=== PATIENT | female | born 1985 | race Caucasian/White ===

== ENCOUNTER 2018-09-28 10:00 | Inpatient (IN) | payer BC ==
[2018-09-23 17:44] VITALS: BMI 19.9
--- NOTE | 2018-09-27 14:45 | HP ---
Admitting History and Physical - Primary Care Physician PCP: Merlin Clark - Admission Chief Complaint: Left breast cancer BRCA 1+ History of Present Illness: 33 year old premenapausal Ashkenazi female BRCA 1 + and was getting close survelance at [facility] and had a mammogram 02/2018 showing left breast calcifications. She was breast feeding at the time and calcifications were not amenable to steretactic core at that time. MRI showed lactational changes. follow up breast MRI 07/2018 showed enhancement at the 3:00 region left breast. MRI core bx left breast showed extensive DCIS and one minute focus of invasion. ER+ AK weakly +. History Source: Patient Limitations to Obtaining History: No Limitations - Past Medical History ...LMP: 09/16/18 - Past Surgical History Additional Past Surgical History: ankle surgery 1999 - Smoking History Smoking history: Never smoked Have you smoked in the past 12 months: No - Alcohol/Substance Use Hx Alcohol Use: Yes (social) Home Medications - Allergies Allergies/Adverse Reactions: Allergies Allergy/AdvReac Type Severity Reaction Status Date / Time No Known Allergies Allergy Verified 09/23/18 17:53 - Home Medications Home Medications: Ambulatory Orders Mv-Min/Iron/Folic/Calcium/Vitk [Women's Multivitamin Tablet] 1 each PO DAILY 12/10 Family Disease History - Family Disease History Family Disease History: CA: Grandparent (mat GM breast ca 40's) Other Family History: mat aunt breast ca 40's. mat [place] ovarian cancer breast ca 80's. patients mother and father and brother tested positive. Physical Examination Constitutional: Yes: Well Nourished ( small a cup breast no skin changes or nipple dc post bx changes left 3:00 region no masses or adenopathy) Problem List - Problems (1) Breast cancer, left breast Code(s): C50.912 - MALIGNANT NEOPLASM OF UNSPECIFIED SITE OF LEFT FEMALE BREAST Qualifiers: Breast location: overlapping sites of breast Estrogen receptor status: positive Patient sex: female Qualified Code(s): C50.812 - Malignant neoplasm of overlapping sites of left female breast; Z17.0 - Estrogen receptor positive status [ER+] Assessment/Plan Bilateral total mastectomies left sentenel node biopsy possible axillary node dissection lymphoscintogram reconstruction
[2018-09-30] MEDS ORDERED: GENTAMICIN SO4 80 MG/2 ML VIAL ONE (11:49)
[2018-09-30] MEDS ORDERED: ceFAZolin SODIUM 1 GM VIAL ONE ×2 (11:50→13:06)
[2018-09-30] MEDS ORDERED: ISOSULFAN BLUE 10 MG/ML VIAL SQ ONE (11:59)
[2018-09-30] MEDS ORDERED: BUPIVACAINE HCL/PF 2.5 MG/ML - 30 ML VIAL IJ ONE (12:08)
[2018-09-30] MEDS ORDERED: MIDAZOLAM HCL 2 MG/2 ML SINGLE DOSE VIAL ONE (12:08)
[2018-09-30] MEDS ORDERED: BUPIVACAINE LIPOSOME/PF (EXPAREL) 266 MG/20 ML VIAL ONE (12:08)
[2018-09-30] MEDS ORDERED: ONDANSETRON 4 MG/2 ML VIAL IVPUSH PRN ×2 (13:50→15:29)
[2018-09-30] MEDS ORDERED: oxyCODONE HCL 5 MG TABLET PO PRN (13:55)
[2018-09-30] MEDS ORDERED: LACTATED RINGERS SOLUTION 1,000 ML IV SCH (14:00)
[2018-09-30] MEDS ORDERED: ROCURONIUM BROMIDE 50 MG/5 ML VIAL ONE (14:33)
[2018-09-30] MEDS ORDERED: ACETAMINOPHEN 325 MG TABLET (FP) PO PRN (15:29)
[2018-09-30] MEDS ORDERED: DEXTROSE 5%-0.45% SALINE 1,000 ML IV SCH (15:30)
[2018-09-30] MEDS ORDERED: NEOSTIGMINE METHYLSULFATE 0.5 MG/ML - 10 ML MDV ONE (16:14)
[2018-09-30] MEDS ORDERED: GLYCOPYRROLATE 0.2 MG/1 ML VIAL ONE (16:14)
[2018-09-30] MEDS ORDERED: DEXAMETHASONE SOD PHOSPHATE 4 MG/1 ML VIAL ONE (16:24)
[2018-09-30] MEDS ORDERED: ONDANSETRON 4 MG/2 ML VIAL ONE (16:24)
--- NOTE | 2018-09-30 16:46 | SURG ---
Surgery Conveyor Belt Operator Note Conveyor Belt Operator: Atul Decker PA-C Date of Service: 09/30/18 Diagnosis: Left breast cancer Procedure: Bilateral breast reconstruction with implants and alloderm after mastectomy I was present for the entirety of the operative procedure. For further detail, please refer to operative report.
[2018-09-30] MEDS ORDERED: PROMETHAZINE HCL 25 MG/1 ML VIAL ONE (17:13)
[2018-09-30] MEDS ORDERED: PROMETHAZINE HCL 25 MG/1 ML VIAL IVPUSH ONE ×3 (17:15→17:57)
--- NOTE | 2018-09-30 20:04 | OP ---
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 PROCEDURE: Bilateral total nipple sparing mastectomies from inframammary approach with left axillary sentinel lymph node biopsy, indirect implant reconstruction with AlloDerm. ANESTHESIA: General endotracheal anesthesia. PRIMARY SURGEON: Merlin Clark M.D. TRAILER TRUCK DRIVER: Kristina Araiza Primary surgeon for the bilateral direct implant reconstruction is Merlin Salcido M.D. with his investigative assistant Kristina Woodward COMPLICATIONS: There were no complications. DESCRIPTION OF PROCEDURE: Briefly, the patient is a 33-year-old G3, P2, premenopausal white female of Ashkenazi Methodist descent. She has a strong family history with her paternal grandmother who had breast cancer in her 40s as well as maternal aunt with breast cancer in her 40s, and a maternal great aunt who had breast and ovarian cancer in her 80s. Her brother tested BRCA1 positive and then her mother and father turned out to be BRCA1 positive, and she has a maternal uncle and 2 maternal cousins who are BRCA1 positive. The patient tested BRCA1 positive as well and was getting close surveillance at [facility]. She was then found to have some calcifications in the left breast. An MRI showed enhancement in the left breast 3 o'clock region. MRI guided core biopsy in August of 2018 showed extensive DCIS which was ER/AL positive. She was seen in consultation and was told of the benefits of bilateral mastectomy given her genetic predisposition. We had all the films reviewed and saw the cancer was far enough away from the nipple to offer a nipple sparing technique. She understood all risks, complications of the procedure including a risk of skin flap necrosis, skin flap and nipple loss as well as hematoma and infection. She was seen by a plastic surgeon and understood our direct implant reconstruction technique. She understood the need for sentinel lymph node biopsy on the left side. She was brought in for the procedure on September 30, 2018. She first underwent at [facility] and was brought to the [facility] area. In the holding area, site verification was made and informed consent was obtained. She underwent a bilateral pectoral nerve block for postoperative pain control. She was brought into the operating room and laid on the OR table in the supine position. Venodynes were placed on the lower extremities. She received 2 g of Ancef prior to incision. She underwent general anesthesia and both breasts were thoroughly prepped and draped in the usual fashion. There was no blue dye injected since we were doing a nipple sparing technique to prevent nipple necrosis. Once the patient was properly anesthetized, the left axillary sentinel lymph node biopsy was first performed. An incision was made just below the hair bearing area of the left axilla, and dissection was undertaken using the Neoprobe to direct the dissection. Two sentinel nodes were easily found in the level 1 region of the lower left axilla. The first one had a 10-second gamma count of 36,396, and the second sentinel lymph node had a 10-second gamma count of 7615. There was a third nonsentinel node removed. Frozen section on the two sentinel nodes came back negative, so no further nodes were removed. Background count after removal of these 3 nodes was 645. At this point, the left mastectomy was performed through an 8-cm inframammary incision which was marked out on the inframammary fold. The skin edges were everted, and the breast was retracted inferiorly using Danny clamp. The skin flap was raised using the PEEK radiofrequency device superiorly to the level of the clavicle, medially to the level of the sternum, laterally to the level of the latissimus, and inferiorly to the level of the inframammary fold. The breast was taken out off pectoralis major muscle using electrocautery from inferomedial to superolateral, completely removed intact. It was oriented with a long lateral, short superior suture, and weighed to allow for appropriate cosmetic result. Skin flaps were inspected to remove all visible breast tissue. A retroareolar biopsy was taken underneath the left nipple areolar complex and sent for frozen section, came back negative, so the nipple was kept. Hemostasis was achieved and the wound was copiously irrigated with warm, sterile saline. At this point instruments, gloves were changed, and the right breast was approached. Again, an inframammary incision was made about 8 cm in length on the right breast inframammary fold. The skin edges were everted, and the breast was retracted inferiorly using Crenshaw clamp. The skin flap was raised superiorly to the level of the clavicle, medially to the level of the sternum, laterally to the level of the latissimus, and inferiorly to the level of the inframammary fold. The breast was taken out off pectoralis major muscle from inferomedial to superolateral, completely removed intact. It was oriented with a long lateral, short superior suture, and weighed to allow for appropriate cosmetic result. Skin flap was inspected and trimmed to remove all visible breast tissue. A retroareolar biopsy was taken underneath the right nipple areolar complex and sent for frozen section, came back negative, so the right nipple was spared. The wound was copiously irrigated with warm, sterile saline and hemostasis was achieved. At this point Dr. Salcido became the primary surgeon who performed the bilateral direct implant reconstruction in the subpectoral location using AlloDerm. Two Mat drains will be placed around each implant. All wounds will be closed by plastic surgery using interrupted 3-0 deep dermal PDS suture and a running 4-0 subcuticular PDS. Mastisol, Steri-Strips will be applied over the wounds. We did use the SPY skin perfusion device at the end of the mastectomy and after the implant reconstruction, and she had excellent skin perfusion bilaterally. The patient will be extubated at the end of the case and brought to the post anesthesia care unit. She will be recovered and admitted postoperatively for pain and wound management. All sponge and needle counts are correct at this point in the case, and estimated blood loss was about 100 mL. She was hemodynamically stable. Jayden [id number]
[2018-09-30] MEDS: CEFAZOLIN 1 GM/D5W 1 GM/50 ML BAG IVPB SCH (21:32)
[2018-09-30] MEDS: oxyCODONE HCL 5 MG TABLET PO PRN (21:32)
[2018-09-30] MEDS: ACETAMINOPHEN 325 MG TABLET (FP) PO SCH (21:32)
[2018-09-30] MEDS ORDERED: ZOLPIDEM TARTRATE 5 MG TABLET PO PRN (22:00)
[2018-09-30] MEDS: traMADol HCL 50 MG TABLET PO SCH (23:00)
[2018-10-01] MEDS: diazePAM 2 MG TABLET PO SCH ×4 (01:39→22:12)
[2018-10-01] MEDS: ACETAMINOPHEN 325 MG TABLET (FP) PO SCH ×4 (03:00→21:13)
[2018-10-01] MEDS: CEFAZOLIN 1 GM/D5W 1 GM/50 ML BAG IVPB SCH ×4 (03:00→21:12)
[2018-10-01] MEDS: traMADol HCL 50 MG TABLET PO SCH ×3 (06:45→22:12)
[2018-10-01 08:15] LABS: HEMATOCRIT 29.7 % (32.4-45.2); HEMOGLOBIN 9.9 GM/dl (10.7-15.3); MCH 28.4 pg (25.7-33.7); MCHC 33.3 g/dl (32.0-36.0); MEAN CELL VOLUME 85.3 fl (80-96); MEAN PLT VOLUME 9.8 fl (7.5-11.1); PLATELET COUNT 197 K/MM3 (134-434); RBC 3.49 M/mm3 (3.60-5.2); RDW 13.6 % (11.6-15.6); WHITE BLOOD COUNT 13.2 K/mm3 (4.0-10.8)
--- NOTE | 2018-10-01 10:03 | PN ---
Progress Note, Physician Chief Complaint: S/P bilateral mastectomy, left sentinel node bx, lymphoscintogram POD# 1 History of Present Illness: Patient was seen at the bedside and reports a small amount of pain with tightness in her chest otherwise without any other complaint. - Current Medication List Current Medications: Active Medications Acetaminophen (Tylenol -) 650 mg PO Q6H [facility] Last Admin: 10/01/18 09:27 Dose: 650 mg Acetaminophen (Tylenol -) 650 mg PO Q4H PRN PRN Reason: FEVER Last Admin: 10/01/18 01:38 Dose: 650 mg Diazepam (Valium -) 2 mg PO Q8H EVELIN Last Admin: 10/01/18 06:46 Dose: 2 mg Cefazolin Sodium (Ancef 1 Gm Premixed Ivpb -) 1 gm in 50 mls @ 100 mls/hr IVPB Q6H-IV EVELIN Stop: 10/07/18 20:59 Last Admin: 10/01/18 08:50 Dose: 100 mls/hr Dextrose/Sodium Chloride (D5-1/2ns -) 1,000 mls @ 100 mls/hr IV ASDIR EVELIN Ondansetron HCl (Zofran Injection) 4 mg IVPUSH Q6H PRN PRN Reason: NAUSEA AND/OR VOMITING Oxycodone HCl (Roxicodone -) 5 mg PO Q4H PRN PRN Reason: PAIN LEVEL 1-5 Last Admin: 09/30/18 21:32 Dose: 5 mg Oxycodone HCl (Roxicodone -) 10 mg PO Q4H PRN PRN Reason: PAIN LEVEL 7 - 10 Tramadol HCl (Ultram -) 50 mg PO Q8H [facility] Last Admin: 10/01/18 06:45 Dose: 50 mg Zolpidem Tartrate (Ambien -) 5 mg PO HS PRN PRN Reason: Insomnia - Objective Vital Signs: Vital Signs Temperature 99.5 F 10/01/18 06:37 Pulse Rate 71 10/01/18 06:37 Respiratory Rate 18 10/01/18 06:37 Blood Pressure 115/45 L 10/01/18 06:37 O2 Sat by Pulse Oximetry (%) 100 10/01/18 06:37 Constitutional: Yes: Well Nourished, Calm Breast(s): Yes: Other (Nipple areola complexes are pink with very small area of ecchymosis. The steristrips are intact without discharge or erythema noted. IVÁN bulb on the left x 1 was replaced sec to inability to hold suction. Otherwise, serosanginous discharge noted bilaterally.) Labs: CBC, BMP 10/01/18 07:46 Problem List - Problems (1) Breast cancer, left breast Code(s): C50.912 - MALIGNANT NEOPLASM OF UNSPECIFIED SITE OF LEFT FEMALE BREAST Qualifiers: Breast location: overlapping sites of breast Estrogen receptor status: positive Patient sex: female Qualified Code(s): C50.812 - Malignant neoplasm of overlapping sites of left female breast; Z17.0 - Estrogen receptor positive status [ER+] Assessment/Plan Plan: OOB with assistance IS 10 xs hourly Continue IV axbx and pain management as per anesthesia Plan for discharge in am
--- NOTE | 2018-10-01 13:42 | OP ---
DATE OF OPERATION: 09/30/2018 SURGEON: Ilya Salcido MD REQUISITION APPROVER SURGEON: Atul Decker PA-C PREOPERATIVE DIAGNOSES: 1. Bilateral acquired chest wall deformity status post bilateral mastectomy (611.89). 2. Personal history of genetic carcinoma. POSTOPERATIVE DIAGNOSES: 1. Bilateral acquired chest wall deformity status post bilateral mastectomy (611.89). 2. Personal history of genetic carcinoma. PROCEDURE: 1. Right immediate breast reconstruction utilizing immediate insertion of silicone breast implant and AlloDerm reconstruction. 2. Left immediate breast reconstruction utilizing immediate insertion of silicone breast implant and AlloDerm reconstruction. 3. Intravenous injection of indocyanine green dye and intraoperative diagnostic evaluation of noncoronary intraoperative fluorescein vascular angiography x 2. ANESTHESIA: General. OPERATIVE PROCEDURE IN DETAIL: The patient was taken to the operating room. After induction of general anesthesia in the supine position, both arms were extended and padded. Venodyne boots were placed. The entire chest wall was painted with ChloraPrep solution over its entire extent, and sterile drapes were placed in the usual fashion. The markings, which had been made in the standing position preoperatively, were re-outlined with the patient's knowledge. Timeout procedure was performed. Attention was turned by Dr. Clark to the mastectomies. Bilateral inframammary incisions were made and Dr. Clark performed mastectomies. This will be dictated under separate cover. Upon completion of the mastectomies, the wounds were copiously irrigated and attention was turned to the right breast. A subpectoral dissection was begun on the right breast, superiorly from the 2nd rib, medially to the sternal fibers, and down to the inframammary fold, elevating the pectoralis major muscle from its insertion. At this point, an 8.0 x 16.0 sheet of AlloDerm contour medium perforated thickness was brought into the field and sutured superiorly along the pectoralis major muscle after rehydration. This was carried along the lateral mammary fold and down the side of the breast reconstruction. At this point, a [employer] SoftTouch breast implant style SSM, 360-mL volume, was chosen. The left breast tissue removed was 167 g and the right breast approximately 162 g. This implant was placed and then sutured with 3-0 Vicryl suture continued along the inframammary fold, completely covering the implant itself. The exact same procedure was carried out symmetrically on the opposite breast, also placing a [facility] [employer] SoftTouch breast implant style SSM, 360-mL volume, in the same subpectoral pocket. Good symmetry was seen in the sitting position. After the implants were in place, the patient was injected with 10 mL of Isocyanide green dye and the Spy imaging system was brought into the field. The skin flowed to the right and left breasts and the nipple-areolar complex, and the entire skin flaps were evaluated and seen to be viable with good blood flow. Two 15 Mat drains were brought out through separate stab wounds laterally. The Smart Infuser pump catheter was inserted medially and into the subpectoral position. Both wounds were closed symmetrically using 3-0 PDS suture on the deep tissue, 3-0 in a deep dermal fashion, and 4-0 in a subcuticular fashion. Both wounds were dressed sterilely with Mastisol and Steri-Strips with a surgical bra and a compression strap. The patient tolerated the procedure well. She was awakened, extubated and transferred to the recovery room in satisfactory condition. The communications assistant was present during the entire portion of the operation and closure. ILYA SALCIDO M.D. [id number]
[2018-10-01] MEDS: oxyCODONE HCL 5 MG TABLET PO PRN (21:12)
[2018-10-02] MEDS: CEFAZOLIN 1 GM/D5W 1 GM/50 ML BAG IVPB SCH ×2 (02:39→08:30)
[2018-10-02] MEDS: ACETAMINOPHEN 325 MG TABLET (FP) PO SCH ×2 (02:40→08:31)
[2018-10-02] MEDS: traMADol HCL 50 MG TABLET PO SCH (06:12)
[2018-10-02] MEDS: diazePAM 2 MG TABLET PO SCH (06:13)
[2018-10-02 09:23] VITALS: BP 106/68; PULSE 73; TEMP 98.4
--- NOTE | 2018-10-02 10:09 | PN ---
Progress Note, Physician Chief Complaint: Left breast cancer overlapping regions with genetic susceptibility for breast cancer BRCA1+ History of Present Illness: The patient has a strong family history of breast cancer and has a known BRCA1 mutation. She was found to have a left breast cancer recently and decided on bilateral mastectomies and chose to go forward with a bilateral nipple sparing technique with direct to implant reconstruction and was admitted postoperatively. - Current Medication List Current Medications: Active Medications Acetaminophen (Tylenol -) 650 mg PO Q6H [facility] Last Admin: 10/02/18 08:31 Dose: 650 mg Acetaminophen (Tylenol -) 650 mg PO Q4H PRN PRN Reason: FEVER Last Admin: 10/01/18 01:38 Dose: 650 mg Diazepam (Valium -) 2 mg PO Q8H [facility]EL[facility] Last Admin: 10/02/18 06:13 Dose: Not Given Cefazolin Sodium (Ancef 1 Gm Premixed Ivpb -) 1 gm in 50 mls @ 100 mls/hr IVPB Q6H-IV EVELIN Stop: 10/07/18 20:59 Last Admin: 10/02/18 08:30 Dose: 100 mls/hr Dextrose/Sodium Chloride (D5-1/2ns -) 1,000 mls @ 100 mls/hr IV ASDIR EVELIN Ondansetron HCl (Zofran Injection) 4 mg IVPUSH Q6H PRN PRN Reason: NAUSEA AND/OR VOMITING Oxycodone HCl (Roxicodone -) 5 mg PO Q4H PRN PRN Reason: PAIN LEVEL 1-5 Last Admin: 10/01/18 21:12 Dose: 5 mg Oxycodone HCl (Roxicodone -) 10 mg PO Q4H PRN PRN Reason: PAIN LEVEL 7 - 10 Tramadol HCl (Ultram -) 50 mg PO Q8H EVELIN Last Admin: 10/02/18 06:12 Dose: 50 mg Zolpidem Tartrate (Ambien -) 5 mg PO HS PRN PRN Reason: Insomnia - Objective Vital Signs: Vital Signs Temperature 98.4 F 10/02/18 09:22 Pulse Rate 73 10/02/18 09:22 Respiratory Rate 17 10/02/18 09:22 Blood Pressure 106/68 10/02/18 09:22 O2 Sat by Pulse Oximetry (%) 100 10/02/18 09:22 Constitutional: Yes: Well Nourished, No Distress, Calm Eyes: Yes: WNL HENT: Yes: WNL Neck: Yes: WNL Cardiovascular: Yes: Regular Rate and Rhythm Respiratory: Yes: Regular, CTA Bilaterally Gastrointestinal: Yes: Normal Bowel Sounds, Soft ...Rectal Exam: Yes: Deferred Genitourinary: Yes: WNL Breast(s): Yes: Other (Matectomy incisions clean, dry, and intact. Drains functioning well. Nipples and skin flaps warm and viable.) Musculoskeletal: Yes: WNL Extremities: Yes: WNL Integumentary: Yes: WNL Wound/Incision: Yes: Clean/Dry, Well Approximated Neurological: Yes: Alert, Oriented ...Motor Strength: WNL Psychiatric: Yes: WNL Labs: CBC, BMP 10/01/18 07:46 Problem List - Problems (1) Breast cancer, left breast Assessment/Plan: The patient is doing well POD#2 s/p bilateral nipple sparing mastectomies. She has good pain control. Wounds clean, dry, and intact. Drains functioning well. Skin flaps and nipples warm and viable. Stable for discharge today. Home in percocet for pain and cefadroxil antibiotics. Follow up with Drs. Salcido and Eduardo in 1 week. Code(s): C50.912 - MALIGNANT NEOPLASM OF UNSPECIFIED SITE OF LEFT FEMALE BREAST Qualifiers: Breast location: overlapping sites of breast Estrogen receptor status: positive Patient sex: female Qualified Code(s): C50.812 - Malignant neoplasm of overlapping sites of left female breast; Z17.0 - Estrogen receptor positive status [ER+]
--- NOTE | 2018-10-02 10:19 | DS ---
Physical Examination Vital Signs: Vital Signs Temperature 98.4 F 10/02/18 09:22 Pulse Rate 73 10/02/18 09:22 Respiratory Rate 17 10/02/18 09:22 Blood Pressure 106/68 10/02/18 09:22 O2 Sat by Pulse Oximetry (%) 100 10/02/18 09:22 Constitutional: Yes: Well Nourished, No Distress, Calm Eyes: Yes: WNL HENT: Yes: WNL Neck: Yes: WNL Cardiovascular: Yes: Regular Rate and Rhythm Respiratory: Yes: Regular, CTA Bilaterally Gastrointestinal: Yes: Normal Bowel Sounds, Soft ...Rectal Exam: Yes: Deferred Renal/: Yes: WNL Breast(s): Yes: Other (Wounds clean, dry, and intact. Drains fuctioning well. Nipples and skin flaps warm and viable.) Musculoskeletal: Yes: WNL Extremities: Yes: WNL Integumentary: Yes: WNL Wound/Incision: Yes: Clean/Dry, Well Approximated Neurological: Yes: Alert, Oriented ...Motor Strength: WNL Psychiatric: Yes: WNL Labs: CBC, BMP 10/01/18 07:46 Discharge Summary Reason For Visit: LEFT BREAST CA Left breast cancer overlapping regions with genetic susceptibility for breast cancer BRCA1+ Procedures: Principal: Bilateral nipple sparing mastectomies with left axillary sentinel lymph node biopsy and bilateral direct to implant reconstruction with alloderm Hospital Course: The patient was admitted postoperatively after bilateral mastectomies left sentinel lymph node biopsy and direct to implant reconstructions with alloderm for pain control and wound management. She did well with good pain control by POD#2 and was stable for discharge. She was taught IVÁN drain management. Home on percocet for pain and cefadroxil antibiotics. Will follow up with Drs. Clark and Loly in 1 week. No heavy lifting or exercise. No bath or shower until drains removed. Keep compressive bra in place day and night. Condition: Good - Instructions Diet, Activity, Other Instructions: BREAST SURGERY INSTRUCTIONS Kishan Clark M.D., TAMELA Clark M.D., TAMELA Quintana M.D., FACS 1. Please call the office at to make a follow up appointment with your surgeon. This number can be also used for any urgent issues you may have. 2. Call us immediately if any of the following occur: *Bleeding from the incision or drain site (a small amount is normal) *Fever or chills *Redness and worsening tenderness around the surgical site *Drainage of pus or fluid from the incision or drain site 3. You may change the surgical dressing two (2) days after your surgery, and may shower then. If you have drains, you may shower after they have been removed, until then take a sponge bath. 4. It is normal for there to be some bruising and tenderness around the surgical site, and the breast may also be firm in this area. 5. Your surgeon used 3M DuraPrep Surgical Solution, a bacteria-killing skin preparation. It is recommended that this film remain on the skin after the procedure. The film will gradually wear away. If, however, early removal is desired: 1. Apply 8610 or 8611 3M Remover solution to the prepped area, keeping away from the wound edge or puncture site. Wipe off with a disposable towel. OR 2. Soak gauze with 70% Isopropyl alcohol and place on the prepped area for at least 40 seconds. Lightly scrub to remove the solution. 6. Please wear a comfortable bra (sports or surgical bra) all day and all night until your first follow-up visit with your surgeon. 7. The pain medicine you have been prescribed may make you constipated; make sure you drink plenty of water. You may use an over the counter laxative if needed. 8. You may resume your normal diet after surgery, although you may want to avoid rich foods for the first twenty-four (24) hours after surgery. Alcoholic drinks should be avoided while taking the prescribed pain medicine. 9. You may resume normal activities as long as there is no discomfort, but do not do upper body exercises until after your follow-up appointment. Do not lift anything heavier than a large phone book. You may resume driving once you have stopped taking the prescribed pain medicine and feel comfortable doing arm movements. Referrals: Merlin Clark MD [Staff Physician] - Celestino Salcido MD [Family Provider] - Disposition: HOME - Home Medications Comprehensive Discharge Medication List: Ambulatory Orders Mv-Min/Iron/Folic/Calcium/Vitk [Women's Multivitamin Tablet] 1 each PO DAILY 11/ 01/18 Cefadroxil 500 mg PO BID #20 capsule 10/01/18 Oxycodone HCl/Acetaminophen [Percocet 5-325 mg Tablet -] 1 - 2 tab PO Q6H #30 tablet MDD 6 10/01/18
--- NOTE | 2018-10-06 11:13 | PATH ---
Surgical Pathology Report Patient Name: SARAH MENDOZA Med. Rec. #: [id number] /Age/Gender: 1985 (Age: 33) / F Account: [id number] Location: [facility] Taken: 09/30/2018 Received: 09/30/2018 Reported: 10/06/2018 Physicians: Merlin Clark M.D. Specimen(s) Received A: LEFT AXILLARY SENTINEL LYMPH NODE#1(FS) B: LEFT AXILLARY SENTINEL LYMPH NODE #2 (FS) C: LEFT RETROAREOLAR BIOPSY (FS) D: RIGHT RETROAREOLAR BIOPSY (FS) E: LYMPH NODE LEFT AXILLARY NON-SENTINEL F: LEFT BREAST MASTECTOMY G: RIGHT BREAST MASTECTOMY H: LEFT BREAST MARGIN ANTERIOR 3:00 Clinical History BRCA +, L DCIS, R prophylactic Intraoperative Consult Diagnosis A. Left axillary sentinel node #1, frozen section: One negative lymph node. B. Left axillary sentinel node #2, frozen section: One negative lymph node. C. Left retroareolar biopsy, frozen section: Negative for malignancy. D. Right retroareolar biopsy, frozen section: Negative for malignancy. Korey Verdin M.D., 09/30/2018 Final Diagnosis A. lymph node, left axillary sentinel #1, excision (FS): One lymph node, negative for metastatic carcinoma (0/1). B. lymph node, left axillary sentinel #2, excision (FS): One lymph node, negative for metastatic carcinoma (0/1). C. retroareola, left, biopsy (FS): Benign breast tissue; negative for malignancy. D. retroareola, right, biopsy (FS): Benign breast tissue; negative for malignancy. E. lymph node , left axillary non-sentinel, excision: One lymph node, negative for metastatic carcinoma (0/1). F. breast, left, nipple-sparing mastectomy: One focus of invasive ductal carcinoma, poorly differentiated, measuring 2 mm in greatest dimension, microscopically and (at least) THREE additional foci of microinvasive carcinoma (</= 1mm), arising in A BACKGROUND OF extensive ductal carcinoma in situ (DCIS), solid and cribriform type, high nuclear grade with extensive necrosis, associated calcifications and lobular extension, present in the upper outer quadrant (UOQ). (See note). Surgical margins are uninvolved by invasive/microinvasive carcinoma; the focus of invasive carcinoma is at 1 mm from the closest (deep) margin. DCIS is close to (< 1 mm) the anterior margin at a few foci. see specimen H for final anterior margin. no lymphovascular invasion is identified. (See note). Prior biopsy site changes are present. Pathologic stage (pTNM): pT1a (m) pN0. see also invasive carcinoma case summary below. Note: Immunohistochemical studies performed on block F3 at [place], [place] () show the following results: Vascular endothelial immunohistochemical marker Factor VIII was used in the evaluation of this case and aids in ruling out the presence of lymphovascular invasion (CD31 immunostain is non-contributory). Myoepithelial immunohistochemical markers (SMM-HC & p40) demonstrate the absence of myoepithelial cells in a focus of microinvasive carcinoma. Myoepithelial immunohistochemical markers (SMM-HC and p63, performed on block F5 at [facility]) demonstrate the absence of myoepithelial cells in the invasive and microinvasive carcinoma. These findings supports the diagnosis G. breast, right, nipple-sparing mastectomy: Benign breast tissue. H. breast, left, anterior margin 3:00, excision: DUCTAL CARCINOMA IN SITU (DCIS), high nuclear grade. (SEE NOTE) DCIS is focally close to (< 1mm) the new margin. Note: Myoepithelial immunohistochemical markers (SMM-HC and p63, performed [facility]) demonstrate the presence of myoepithelial cells in a focus of lobular extension of DCIS with sclerosis. This finding supports the diagnosis and aids in ruling out microinvasion. Comments Breast Invasive Carcinoma: Surgical Pathology Case Summary (Based on AJCC TNM 8 th edition) Procedure _X_ Total mastectomy (including nipple-sparing and skin-sparing mastectomy) Specimen Laterality _X_ Left Tumor Size _X_ Greatest dimension of largest invasive focus >1 mm (specify exact measurement) (millimeters): 2 mm Histologic Type _X_ Invasive carcinoma of no special type (ductal, not otherwise specified) Histologic Grade (Rohan Histologic Score) Glandular (Acinar)/Tubular Differentiation _X_ Score 3 (<10% of tumor area forming glandular/tubular structures) Nuclear Pleomorphism _X_ Score 3 Mitotic Rate _X_ Score cannot be determined Overall Grade _X_ Score cannot be determined Tumor Focality _X_ Multiple foci of invasive carcinoma Number of foci: at least 4 Sizes of individual foci: 2 mm and at least three foci of microinvasive carcinoma (</= 1mm) Ductal Carcinoma In Situ (DCIS) _X_ DCIS is present in specimen _X_ Positive for EIC Margins Invasive Carcinoma Margins _X__ Uninvolved by invasive carcinoma Distance from closest margin (millimeters): 1 mm Closest margin: deep DCIS Margins _X_ Uninvolved by DCIS Distance from closest margin (millimeters): < 1 mm (final anterior margin H) Regional Lymph Nodes Number of Lymph Nodes with Macrometastases (>2 mm): 0 Number of Lymph Nodes with Micrometastases (>0.2 mm to 2 mm and/or >200 cells): 0 Number of Lymph Nodes with Isolated Tumor Cells (=0.2 mm and =200 cells): 0 Number of Lymph Nodes Examined: 2 Number of [place] Nodes Examined :2 Treatment Effect _X_ No known presurgical therapy Lymphovascular Invasion _X_ Not identified Pathologic Stage Classification (pTNM, AJCC 8th Edition) Primary Tumor (Invasive Carcinoma) (pT) _X_ pT1a (m): Tumor >1 mm but =5 mm in greatest dimension (round any measurement >1.0-1.9mm to 2 mm) Regional Lymph Nodes (pN) Modifier (required only if applicable) Category (pN) _X_ pN0: No regional lymph node metastasis identified or ITCs only Biomarker Studies Results of ER, MO, Her2 and Ki67 studies will be reported separately in an addendum. Electronically Signed Swapna Verdin M.D. Gross Description A. Received fresh labeled "left axillary sentinel node #1," is a 1.5 x 0.8 x 0.3 cm lymph node with attached fatty tissue. Frozen section is performed on the tissue. The frozen section residue is entirely submitted in one cassette. B. Received fresh labeled "left axillary sentinel node #2," is a 1.2 x 0.8 x 0.4 cm lymph node with attached fatty tissue. The lymph node is bisected and frozen section is performed on the lymph node. The frozen section residue is entirely submitted in one cassette. C. Received fresh labeled "left retroareolar biopsy," is a 1.3 x 0.7 x 0.2 cm portion of red-wong tissue. Frozen section is performed on the tissue. The frozen section residue is entirely submitted in one cassette. D. Received fresh labeled "right retroareolar biopsy," is a 1.3 x 0.5 x 0.2 cm portion of red-wong tissue. Frozen section is performed on the tissue. The frozen section residue is entirely submitted in one cassette. E. Received in formalin labeled "left axillary non-sentinel node," is a 0.7 cm in greatest dimension wong lymph node. The specimen is submitted in toto in one cassette. F. Received in formalin, labeled "left mastectomy," is a 170 gram, 14.0 x 12.5 x 2.3 cm. left mastectomy specimen with a short suture marking the superior aspect and a long suture marking the lateral aspect of the specimen, per the surgeon. There is no skin or nipple present. The deep margin is inked black and the anterior soft tissue margin is inked blue. The specimen is serially sectioned from medial to lateral. Sectioning reveals a focal previous biopsy site in the upper outer quadrant (UOQ), containing a simon metallic biopsy clip. The previous biopsy site is associated with firm fibrous tissue. The remaining breast parenchyma displays abundant dense, white, focally firm fibrous tissue with dilated ducts. [employer] sections are submitted in 15 cassettes as follows: 1-2-UOQ previous biopsy site; 8-5-dqhllebhfu UOQ tissue; 6-8-lower outer quadrant; 9-11-upper inner quadrant; 12-13-lower inner quadrant; 14-anterior soft tissue margin; 15-deep margin. Time to formalin fixation: 24 minutes Total formalin fixation time: Approximately 27 hours. G. Received in formalin, labeled "right mastectomy," is a 168 gram, 14.5 x 13.0 x 1.8 cm. right mastectomy specimen with a short suture marking the superior aspect and a long suture marking the lateral aspect of the specimen, per the surgeon. There is no skin or nipple present. The deep margin is inked black and the anterior soft tissue margin is inked blue. The specimen is serially sectioned from lateral to medial. Sectioning reveals abundant dense, white, focally firm fibrous tissue. [employer] Education Instructor sections are submitted in 14 cassettes as follows: 1-3-upper outer quadrant; 4-6-lower outer quadrant; 7-9-upper inner quadrant; 10-12-lower inner quadrant; 13-anterior soft tissue margin; 14-deep margin. Time to formalin fixation: 25 minutes Total formalin fixation time: Approximately 26 hours. H. Received in formalin labeled "left breast anterior margin 3:00," is a 3.7 x 1.4 x 1.0 cm portion of fibroadipose tissue with a suture marking the biopsy cavity side, per the surgeon. The new margin is inked green and the specimen is serially sectioned. The specimen is entirely and sequentially submitted in 5 cassettes. 10/01/2018 [facility]10/01/2018
== END 2018-10-02 13:30 | disposition home or self-care (01) | DRG 581 ==
LOC: FM/S 09-30 10:42
PROVIDERS: ADMIT Surgery Surgical Oncology; ATTEND Surgery Surgical Oncology
PROC: 4A1GXSH Monitoring of Skin and Breast Vascular Perfusion using Indocyanine Green Dye, External Approach (ICD-10-PCS; 2018-09-30)
PROC: 0HTV0ZZ Resection of Bilateral Breast, Open Approach (ICD-10-PCS; principal; 2018-09-30 13:28)
PROC: 07T60ZZ Resection of Left Axillary Lymphatic, Open Approach (ICD-10-PCS; 2018-09-30 13:28)
PROC: 0HRV0JZ Replacement of Bilateral Breast with Synthetic Substitute, Open Approach (ICD-10-PCS; 2018-09-30 13:28)
DX: C50.812 Malignant neoplasm of overlapping sites of left female breast (principal); Z17.0 Estrogen receptor positive status [ER+]; Z40.01 Encounter for prophylactic removal of breast; M95.4 Acquired deformity of chest and rib; Z85.3 Personal history of malignant neoplasm of breast
CPT/HCPCS: 36415; 78195-TC; 84703; 85027; 88307-TC; 88331-TC; 88341-TC; 94760; A9541